=== PATIENT | female | born 1985 | race Caucasian/White ===

== ENCOUNTER → 2020-10-07 | Outpatient (CLI) | payer BC, OTHER ==
[~2020-10-07] MED LIST: OMNIPAQUE 350 MG/ML, 100ML BOTTLE ONE
== END | disposition home or self-care (01) ==
LOC: RAD 11:00
PROVIDERS: ATTEND Nurse Practitioner Family
DX: R10.31 Right lower quadrant pain (principal)
CPT/HCPCS: 74177; Q9967